=== PATIENT | female | born 1965 ===

== ENCOUNTER 2021-09-17 08:00 | Outpatient (CLI) | payer OTHER | END 2021-09-17 08:15 | disposition home or self-care (01) | LOC: PPH VACUNA 08:00 | PROVIDERS: ATTEND Emergency Medicine Pediatric Emergency Medicine | DX: Z23 Encounter for immunization (principal) ==

== ENCOUNTER → 2021-09-17 | Outpatient (CLI) | payer OTHER ==
[~2021-09-17] MED LIST: ALLEGRA ALLERG180 MG PO; AMOX1TAB12 PO; DOLOGESIC CAPLE1 TAB PO; FLONASE16 GM NS
== END | disposition home or self-care (01) ==
LOC: PPH VACUNA 08:00
PROVIDERS: ATTEND Emergency Medicine Pediatric Emergency Medicine
DX: Z23 Encounter for immunization (principal)

== ENCOUNTER 2021-12-08 08:00 | Outpatient (CLI) | payer OTHER | END 2021-12-08 08:30 | disposition home or self-care (01) | LOC: PPH VACUNA 08:00 | PROVIDERS: ATTEND Emergency Medicine Pediatric Emergency Medicine | DX: Z23 Encounter for immunization (principal) ==